=== PATIENT | male | born 1985 | race Caucasian/White ===

== ENCOUNTER 2018-01-10 21:42 | Emergency (ER) | payer SELFPAY ==
[~2018-01-10] VITALS: Ht 170.2 cm; Wt 63.5 kg
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
[2018-01-11] MEDS ORDERED: IBUPROFEN 600 MG TABLET PO ONE (00:45)
[2018-01-11] MEDS ORDERED: HYDROCODONE/APAP 5-325MG TABLET PO ONE (00:45)
[2018-01-11] MEDS ORDERED: IBUPROFEN 600 MG TABLET ONE (00:53)
[2018-01-11] MEDS ORDERED: HYDROCODONE/APAP 5-325MG TABLET ONE (00:53)
--- NOTE | 2018-01-11 00:55 | NUR ---
PATIENT SITTING IN THE WAITING ROOM, DOES NOT WANT TO STAY IN ROOM. AWAITING ONE MORE XRAY AT THIS TIME.
[2018-01-11 01:18] VITALS: BP 111/83
--- NOTE | 2018-01-11 01:18 | NUR ---
Patient discharged to home in stable conditon. Written and verbal after care instructions given. Patient verbalizes understanding of instructions. PATIENT LEFT WITH STABLE GAIT
== END 2018-01-11 01:19 | disposition home or self-care (01) ==
LOC: ER 21:47
DX: S33.5XXA Sprain of ligaments of lumbar spine, initial encounter (principal); S70.12XA Contusion of left thigh, initial encounter; S60.212A Contusion of left wrist, initial encounter; S90.32XA Contusion of left foot, initial encounter; S09.90XA Unspecified injury of head, initial encounter; F17.200 Nicotine dependence, unspecified, uncomplicated; V49.9XXA Car occupant (driver) (passenger) injured in unspecified traffic accident, initial encounter; Y93.89 Activity, other specified; Y92.410 Unspecified street and highway as the place of occurrence of the external cause; Y99.8 Other external cause status
CPT/HCPCS: 73090; 73110; 73551; 73630; A4663